=== PATIENT | female | born 1960 | race Caucasian/White ===

== ENCOUNTER → 2020-01-21 11:12 | Outpatient (CLI) | payer OTHER, SELFPAY ==
--- NOTE | ~2020-01-21 | MR_ITS ---
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 Strabismus. TECHNIQUE: Magnetic resonance imaging (MRI) of the orbits was performed without and with 19 mL MultiH ance intravenous contrast. Sequences included sagittal and axial T1-weighted FSE, axial diffusion-lux ghted FS EPI, axial T2*-weighted GRE, axial T2-weighted FLAIR Propeller, and axial T2-weighted Propel ler. Postcontrast sequences included axial and coronal T1-weighted FSE. Apparent diffusion coefficien t (ADC) maps were created. Sequences of the orbits included coronal and axial T2-weighted FS FSE and T1-weighted FSE. Postcontrast sequences included axial and coronal T1-weighted FS FSE. COMPARISON: None. FINDINGS: There is no intracranial hemorrhage, acute infarction, or abnormal intracranial mass lesion . The ventricles are normal in size. There are trace bilateral mastoid effusions. The paranasal sinus es are clear. The extraocular muscles, optic nerves, and ocular globes are normal. There is no abnorm al orbital mass. IMPRESSION: 1. Normal orbits and brain. Reviewed, dictated and finalized at location A. IMPRESSION: 1. Normal orbits and brain.
[2020-01-21 11:46] LABS: Estimated Glomerular Filt Rate > 60
== END ==
DX: H49.21 Sixth [abducent] nerve palsy, right eye (principal)
CPT/HCPCS: 36415; 70543; A9577